=== PATIENT | male | born 1930 | race Caucasian/White ===

== ENCOUNTER 2017-01-31 22:18 | Emergency (ER) | payer OTHER ==
[~2017-01-31] VITALS: Ht 177.8 cm; Wt 74.9 kg
[2017-01-31 22:25] VITALS: TEMP 36.6; Ht 177.8 cm; Wt 74.9 kg
[2017-01-31] MEDS ORDERED: MULT-599 PO (23:19)
[2017-01-31] MEDS ORDERED: OMEG10007 PO (23:19)
[2017-01-31] MEDS ORDERED: PRVHFAIN INH (23:20)
[2017-01-31] MEDS ORDERED: LEVO25TA5 PO (23:20)
[2017-01-31] MEDS ORDERED: CHOL1000 PO (23:20)
[2017-01-31] MEDS ORDERED: ALPR0.25 PO (23:20)
[2017-01-31] MEDS ORDERED: FLVHFA110 INH (23:20)
[2017-01-31] MEDS ORDERED: WARF5TAB7 PO ×2 (23:20)
[2017-01-31] MEDS ORDERED: FLEC100T21 PO (23:20)
[2017-01-31] MEDS ORDERED: GLC/500 PO (23:20)
[2017-01-31] MEDS ORDERED: LNX125 PO (23:20)
[2017-01-31] MEDS ORDERED: FLECAINIDE ACETATE 100 MG TAB PO STA (23:25)
[2017-01-31] MEDS ORDERED: DIGOXIN 0.125 MG TAB PO STA (23:25)
[2017-01-31] MEDS ORDERED: WARFARIN SOD 5 MG TAB PO STA (23:25)
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
[2017-02-01 01:39] VITALS: BP 121/71; PULSE 98; O2SAT 97
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
== END 2017-02-01 01:40 | disposition home or self-care (01) ==
LOC: EDBD 22:18 → C.EDA 22:19
DX: R10.30 Lower abdominal pain, unspecified (principal); M79.631 Pain in right forearm; V43.62XA Car passenger injured in collision with other type car in traffic accident, initial encounter; I48.91 Unspecified atrial fibrillation; J45.909 Unspecified asthma, uncomplicated; Z79.01 Long term (current) use of anticoagulants; Z79.84 Long term (current) use of oral hypoglycemic drugs; Z79.899 Other long term (current) drug therapy